=== PATIENT | male | born 1935 | race Caucasian/White ===

== ENCOUNTER 2020-06-02 12:45 | Emergency (ER) | payer MEDICARE, SELFPAY ==
[2020-06-02] VITALS (33 sets, daily range): BP systolic 121–147; BP diastolic 49–117; PULSE 0–137; RESP 11–36; TEMP 36.6; O2SAT 96–100
--- NOTE | ~2020-06-02 | CT_ITS ---
EXAMINATION: CT brain wo con DATE: 06/02/2020 13:08 INDICATION: Head injury. TECHNIQUE: Computed tomography (CT) of the head was performed without intravenous contrast. The mA wa s adjusted according to patient size. Iterative reconstruction technique was employed. The dose-lengt h product was 605.33 mGy-cm. COMPARISON: Head CT 09/26/2018 FINDINGS: There are scattered areas of low attenuation in the cerebral white matter. There is no intr acranial hemorrhage, acute infarction, or abnormal intracranial mass lesion. The ventricles are edson l in size. There are fractures of the nasal bones and nasal septum. There is mucosal thickening in th e paranasal sinuses. The mastoid air cells are normal. There are likely changes of ocular lens replac ement surgeries. IMPRESSION: 1. Stable mild nonspecific cerebral white matter disease, which likely represents chronic small vesse l ischemic disease. 2. Fractures of the nasal bones and nasal septum. Reviewed, dictated and finalized at location B. INSPECTOR IMPRESSION: 1. Stable mild nonspecific cerebral white matter disease, which likely represen ts chronic small vessel ischemic disease. 2. Fractures of the nasal bones and nasal septum.
--- NOTE | ~2020-06-02 | CT_ITS ---
EXAMINATION: CT facial & cervical spine wo DATE: 06/02/2020 13:09 INDICATION: Head injury. TECHNIQUE: Computed tomography (CT) of the maxillofacial region and cervical spine was performed with out intravenous contrast. Automated exposure control and iterative reconstruction technique were empl oyed. The dose-length product was 328.01 mGy-cm. COMPARISON: None FINDINGS: MAXILLOFACIAL CT: There are likely changes of ocular lens replacement surgeries. There are fractures of the nasal bones and nasal septum. There is leftward deviation of the nasal septum. There is frothy material in the n heather cavity and pharynx. CERVICAL SPINE CT: There is kyphosis of lower cervical spine. There is a fracture of right C7 superior facet. There is c hronic anterior wedging of C7 vertebral body. There is 2 mm anterolisthesis of C3 on C4. There is mil dly decreased disc height from C2-C3 through C5-C6 and severely decreased disc height at C6-C7, C7-T1 , and T1-T2. There is developmental osseous central canal stenosis from C1 to C7. The following disc levels are specifically discussed: C2-C3: There is no uncovertebral joint osteoarthritis. There is moderate right and severe left facet joint osteoarthritis. There is mild left neural foraminal stenosis. There is mild central canal steno sis. C3-C4: There is ankylosis of the uncovertebral joints with mild hypertrophy. There is ankylosis of th e facet joints with moderate hypertrophy. There is mild bilateral neural foraminal stenosis. There is mild central canal stenosis. C4-C5: There is moderate bilateral uncovertebral joint osteoarthritis. There is moderate right and se angelic left facet joint osteoarthritis. There is mild right and moderate left neural foraminal stenosis . There is mild central canal stenosis. C5-C6: There is mild bilateral uncovertebral joint osteoarthritis. There is severe right and mild lef t facet joint osteoarthritis. There is mild bilateral neural foraminal stenosis. There is mild centra l canal stenosis. C6-C7: There is severe bilateral uncovertebral joint osteoarthritis. There is mild bilateral facet radha int osteoarthritis. There is mild left neural foraminal stenosis. There is mild central canal stenosi s. C7-T1: There is severe bilateral uncovertebral joint osteoarthritis. There is severe right and modera te left facet joint osteoarthritis. There is mild right neural foraminal stenosis. There is mild cent ral canal stenosis. IMPRESSION: 1. Acute fractures of the nasal bones and nasal septum. 2. Acute nondisplaced fracture of right C7 superior facet. 3. Severe cervical spondylosis. Reviewed, dictated and finalized at location B. OLOGIST
--- NOTE | 2020-06-02 12:59 | PC.NURSE ---
VERBAL ORDER FROM PATRICA GRANADOS FOR CBC, CMP, UA, CT BRAIN, CERVICAL SPINE AND FACIAL BONES.
--- NOTE | 2020-06-02 12:59 | PC.NURSE ---
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
--- NOTE | 2020-06-02 13:12 | PC.NURSE ---
SPOKE WITH TALIA FROM [facility] WHO CARES FOR PT, UPDATED ON PT STATUS, TO CALL BACK WHEN RESULTS ARE IN.
[2020-06-02] MEDS: ONDANSETRON INJ 4 MG/2 ML VIAL (13:38)
[2020-06-02] MEDS: MORPHINE SULFATE (*CRX) 2 MG/ML INJ (13:38)
--- NOTE | 2020-06-02 13:40 | PC.NURSE ---
WHILE STRAIGHT CATHING PT, PT BECOMES COMBATIVE AND YELLING, PATRICA GRANADOS CALLED TO BEDSIDE, VERBAL ORDER GIVEN FOR 2MG MORPHINE AND 4MG IVP STAT.
--- NOTE | 2020-06-02 13:48 | PC.NURSE ---
UPDATE GIVEN TO DAUGHTER OVER THE PHONE PER POA REQUEST.
[2020-06-02 13:51] LABS: Basophils Absolute Auto 0.1 K/mm3 (0.0-0.1); Basophils Percent Auto 0.6 % (0.2-1.2); Eosinophils Absolute Auto 0.2 K/mm3 (0-0.3); Eosinophils Percent Auto 1.9 % (0-4.4); Hematocrit 28.5 % (42.0-52.0); Hemoglobin 9.3 g/dL (14.0-18.0); Immature Granulocyte Absolute 0.58 K/mm3 (0.00-0.031); Immature Granulocyte Percent A 4.6 % (0-0.5); Lymphocytes Absolute Auto 0.82 K/mm3 (0.9-3.2); Lymphocytes Percent Auto 6.5 % (18.3-44.2); Mean Corpuscular HGB Conc 32.6 g/dl (32-36); Mean Corpuscular Hemoglobin 31.7 pg (26-34); Mean Corpuscular Volume 97.3 fl (80-100); Monocytes Absolute Auto 0.7 K/mm3 (0.1-0.6); Monocytes Percent Auto 5.6 % (2.6-8.5); Neutrophils Absolute Auto 10.2 K/mm3 (1.3-6.7); Neutrophils Percent Auto 80.8 % (45.5-73.1); Platelet Count Result 316 k/mm3 (150-375); Red Blood Count 2.93 M/mm3 (4.6-6.20); Red Cell Distribution Width 15.3 % (11.5-14.5); White Blood Count 12.6 K/mm3 (4.5-10.0)
[2020-06-02 13:53] LABS: Add Urine Microscopic? YES; Appearance Urine Clear (Clear); Bilirubin Urine Negative (Negative); Blood Urine Negative (Negative); Color Urine Yellow (Yellow); Glucose Urine UA Negative (Negative); Ketones Urine Negative (Negative); Leukocyte Esterase Ur Negative LEU/UL (Negative); Mucus Urine Rare /lpf; Nitrate Urine Negative (Negative); Protein Urine Negative (Negative); RBC Urine 0-2 /hpf (0-2); Squamous Epithelial Cell Urine Rare /hpf (Few); Urobilinogen Urine Negative mg/dL (<2.0); WBC Urine 0-3 /hpf
--- NOTE | 2020-06-02 13:56 | ED.FALL ---
HPI - Fall General Chief Complaint: Fall Stated Complaint: fall Time Seen by Provider: 06/02/20 13:41 Source: family and EMS Mode of arrival: EMS History of Present Illness HPI Narrative: Patient is 84 years old white male brought to the emergency room by ambulance/with his significant other who is telling me that patient got out of bed, lost his balance, fell, hit his face on the wall in the way down. No loss of consciousness. No blood thinners. History of advanced Alzheimer's, prostatic cancer who refused to be treated, hospice at home 4 days ago, DNR. The above history per patient significant other Related Data Home Medications Medication Instructions Recorded Confirmed cholecalciferol (vitamin D3) 125 5,000 unit PO DAILY 05/25/19 01/31/20 mcg (5,000 unit) capsule docusate sodium 100 mg capsule 100 mg PO DAILY 05/25/19 01/31/20 donepezil 10 mg tablet 10 mg PO ONCE 05/25/19 01/31/20 hydrocortisone 2.5 % topical cream 1 applic RECTAL DAILY PRN 05/25/19 01/31/20 with perineal applicator mecobalamin (vitamin B12) 1,000 1,000 mcg SUBLINGUAL DAILY 05/25/19 01/31/20 mcg disintegrating tablet,sublingual omeprazole 20 mg capsule,delayed 20 mg PO DAILY 05/25/19 01/31/20 release polyethylene glycol 3350 17 17 gm PO DAILY 05/25/19 01/31/20 gram/dose oral powder sertraline 100 mg tablet 100 mg PO DAILY 05/25/19 01/31/20 hyoscyamine mg PO 06/02/20 06/02/20 lorazepam 0.5 mg PO TID PRN 06/02/20 Allergies Allergy/AdvReac Type Severity Reaction Status Date / Time No Known Allergies Allergy Unknown Verified 01/24/20 16:01 Review of Systems Review of Systems: ROS unobtainable: Yes unobtainable due to medical condition PMFSH Family History Family History Sibling Family history of liver disease Mother Family history of malignant neoplasm Patient's mother is Social History Social History Smoking status: Never smoker Second hand tobacco smoke exposure: No Alcohol intake: never Exam Narrative: Exam Narrative: General appearance: Well-developed, well-nourished Skin: Large abrasion at the top of the head, Head: Normocephalic, nontraumatic Eyes: Clear conjunctiva ENT: Oropharynx normal, ears normal, left epistaxis, controlled Neck: C-collar on Chest and respiratory: Airway patent, no respiratory distress, no accessory muscle use Heart: Regular rate/rhythm Abdomen: Soft, nontender, no organomegaly, quiet bowel sounds Musculoskeletal: Normal range of motion, nontender back Neurologic: Alert, disoriented x4 Course Course Emergency Course: Stable Consultations Consultation #1: Dr. Morton/ED [facility], accepted transfer to the emergency room Date: 06/02/20 Time: 14:09 Vital Signs Vital signs: Vital Signs Temperature 36.6 C 06/02/20 12:43 Pulse Rate 71 06/02/20 12:43 Respiratory Rate 30 H 06/02/20 12:43 Blood Pressure 132/60 06/02/20 12:43 Pulse Oximetry 96 06/02/20 12:43 Temperature 36.6 C 06/02/20 12:43 Pulse Rate 72 06/02/20 13:46 Respiratory Rate 18 06/02/20 13:46 Blood Pressure 125/71 06/02/20 13:46 Pulse Oximetry 99 06/02/20 13:29 MDM - Fall MDM Narrative Medical decision making narrative: Patient presents with a fall, CT head, CT cervical spine, CT facial bone, labs and UA ordered. Further plan to follow Differential Diagnosis Differential diagnosis: Likely compression fracture, concussion without loss of consciousness and other (Electrolyte imbalance, intracranial hemorrhage, cervical fracture) Lab Data Result diagrams: 06/02/20 13:41
[2020-06-02 14:28] LABS: Alanine Aminotransferase 11 U/L (4-50); Alkaline Phosphatase 66 U/L (38-126); Anion Gap 2 mmol/L (8-16); Aspartate Amino Transferase 20 U/L (17-59); Bilirubin,Total 0.4 mg/dL (0.2-1.3); Blood Urea Nitrogen 27 mg/dL (9-20); Calcium 8.7 mg/dL (8.4-10.2); Carbon Dioxide 32 mmol/L (22-30); Chloride 103 mmol/L (98-107); Estimated CRCL calculation 44 ml/min; Estimated Glomerular Filt Rate > 60; Glucose 108 mg/dL (75-110); Potassium 4.8 mmol/L (3.4-5.0); Sodium 137 mmol/L (137-145)
--- NOTE | 2020-06-02 16:21 | PC.NURSE ---
UPDATED VITAS AT THIS TIME ON PT TRANSFER.
[2020-06-02] MEDS: MORPHINE SULFATE (*CRX) 4 MG/ML INJ 2 MG IV PUSH (16:35)
--- NOTE | 2020-06-02 16:35 | PC.NURSE ---
PT C/O PAIN, VERBAL ORDER FROM PATRICA GRANADOS FOR 2MG MORPHINE IVP STAT.
--- NOTE | 2020-06-02 17:00 | PC.NURSE ---
caregiver with pt. took pt.'s clothes and medication bottles. To [facility] via [facility]
== END 2020-06-02 16:55 | disposition short-term general hospital (02) ==
PROVIDERS: Emergency Provider Emergency Medicine; PCP Physician Assistant
DX: S02.2XXA Fracture of nasal bones, initial encounter for closed fracture (principal); S12.691A Other nondisplaced fracture of seventh cervical vertebra, initial encounter for closed fracture; G30.9 Alzheimer's disease, unspecified; F02.80 Dementia in other diseases classified elsewhere, unspecified severity, without behavioral disturbance, psychotic disturbance, mood disturbance, and anxiety; C61 Malignant neoplasm of prostate; R90.82 White matter disease, unspecified; M47.812 Spondylosis without myelopathy or radiculopathy, cervical region; W01.198A Fall on same level from slipping, tripping and stumbling with subsequent striking against other object, initial encounter
CPT/HCPCS: 36415; 70450; 70486; 72125; 80053; 81001; 85025; 96374; 96375; 96376; 99285; J2270; J2405